=== PATIENT | male | born 1970 | race Caucasian/White ===

== ENCOUNTER 2021-03-01 09:27 | Day surgery (SDC) | payer OTHER ==
[2021-02-22 15:23] LABS: BASOPHILS # (AUTO) 0.1 X10'3 (0-0.2); BASOPHILS % (AUTO) 0.6 % (0-1); EOSINOPHILS # (AUTO) 0.1 X10'3 (0-0.9); LYMPHOCYTES % (AUTO) 33.3 % (21-51); MEAN CORPUSCULAR HEMOGLOBIN 31.2 PG (27.0-31.0); MEAN CORPUSCULAR HGB CONC 34.8 g/dL (33.0-36.5); MEAN CORPUSCULAR VOLUME 89.8 FL (78-98); MEAN PLATELET VOLUME 9.8 FL (7.4-10.4); MONOCYTES # (AUTO) 0.6 X10'3 (0-0.9); MONOCYTES % (AUTO) 7.1 % (2-12); NEUTROPHILS # (AUTO) 5.1 X10'3 (1.8-7.7); PRE OP HEMATOCRIT 43.7 % (42.0-52.0); PRE OP HEMOGLOBIN 15.2 g/dL (14.0-17.9); PRE OP PLATELET COUNT 231 X10'3 (140-440); RED BLOOD COUNT 4.87 X10'6 (4.70-6.10); RED CELL DISTRIBUTION WIDTH 13.6 % (11.5-14.5)
[2021-02-22 15:42] LABS: ALBUMIN 3.7 G/DL (3.4-5.0); ALBUMIN/GLOBULIN RATIO 0.9 (1.1-1.5); ALKALINE PHOSPHATASE 97 IU/L (46-116); BLOOD UREA NITROGEN 13 MG/DL (7-18); CALCIUM 9.2 MG/DL (8.5-10.1); CHLORIDE 104 MMOL/L (99-107); CREATININE 1.18 MG/DL (0.60-1.10); PRE OP ALT 44 U/L (30-65); PRE OP ANION GAP 12 (8-16); PRE OP AST 28 U/L (10-37); PRE OP BILIRUB, TOTAL 0.5 MG/DL (0.0-1.0); PRE OP GLUCOSE 151 MG/DL (70-104); PRE OP POTASSIUM 3.8 MMOL/L (3.4-5.1); PRE OP SODIUM 139 MMOL/L (135-145); TOTAL CARBON DIOXIDE 23.2 MMOL/L (24-32); TOTAL PROTEIN 7.8 G/DL (6.4-8.2); eGFR 66 ML/MIN
[~2021-03-01] VITALS: Ht 188 cm; Wt 169.5 kg
[2021-03-01] VITALS (14 sets, daily range): BP systolic 95–139; BP diastolic 50–90
[~2021-03-01 09:27] MED LIST: LISI20TA28 PO; METF-900 PO; VANCOMYCIN 1,500MG inj. 1,500 MG in normal saline 500ml IV soln 300 ML IV ONE; ceFAZolin inj. 3,000 MG in normal saline 100ml IV soln 100 ML IV ONE; cefazolin/dext.iso 2gm/50ml 50 ML IV ONE; famotidine 20mg tablet PO ONE; ringers solution, lacted 1,000 ML IV SCH
[2021-03-01] MEDS ORDERED: proCHLORperazine 10 MG/2 ml inj IV PRN (11:15)
[2021-03-01] MEDS ORDERED: ringers solution, lacted 1,000 ML IV SCH (11:15)
[2021-03-01] MEDS ORDERED: morphine 4 MG/ML inj SYRINge IV PRN (11:15)
[2021-03-01] MEDS ORDERED: ondansetron/PF 4mg/2ml inj IV PRN (11:15)
[2021-03-01] MEDS ORDERED: meperidine/PF 25mg/ml syringe IV PRN ×3 (11:15)
[2021-03-01] MEDS ORDERED: morphine 2 MG/ML inj. syringe IV PRN (11:15)
[2021-03-01] MEDS ORDERED: BUPIVAcaine/PF 2.5 mg/ml (0.25%) 30ml vial ONE (12:17)
[2021-03-01] MEDS ORDERED: triamcinolone acetonide 40mg/ml inj ONE (12:17)
[2021-03-01] MEDS ORDERED: sevoflurane 250ml liquid IH ONE (12:38)
[2021-03-01] MEDS ORDERED: rocuronium 10mg/ml inj IV ONE (12:38)
[2021-03-01] MEDS ORDERED: midazolam 1 mg/ML 2ml injection ONE (12:47)
[2021-03-01] MEDS ORDERED: fentaNYL/PF 50MCG/1 ML 2ML syringe ONE (12:47)
[2021-03-01] MEDS ORDERED: propofol inj 20 ML IV ONE (13:42)
[2021-03-01] MEDS ORDERED: neostigmine methylsulfate 1 MG/ML 10ml vial ONE (13:43)
[2021-03-01] MEDS ORDERED: glycopyrrolate 0.2mg/ml inj ONE (13:43)
--- NOTE | 2021-03-01 13:56 | NUR ---
Received from OR via [facility] IN STABLE CONDITION , accompanied by Anesthesiologist and TRAIN BRAKER report given by TRAIN BRAKER AND Anesthesiolgist. Addendum: 03/01/21 at 1425 by Emma Islas RN Amended: Links added.
[2021-03-01] MEDS ORDERED: acetaminophen 1,000mg/100ml IV 100 ML IV ONE (14:35)
--- NOTE | 2021-03-01 14:36 | NUR ---
SUSANNAH OVERIDE FOR NAUSEA AND VOMITING Addendum: 03/01/21 at 1437 by Emma Islas RN Amended: Links added.
[2021-03-01] MEDS ORDERED: oxyCODONE IR 5mg (immed. release) tablet PO ONE (15:05)
--- NOTE | 2021-03-01 16:06 | NUR ---
I HAVE REVIEWED D/C INSTRUCTIONS WITH PATIENT AND THEY HAVE VERBALIZED UNDERSTANDING OF INSTRUCTIONS. PATIENT D/C HOME WITH ALL BELONGINGS AND FAMILY GAVE TRANSPORT Addendum: 03/01/21 at 1613 by Emma Islas RN Amended: Links added.
== END 2021-03-01 16:06 | disposition home or self-care (01) ==
LOC: PAS 09:27
PROVIDERS: ATTEND Orthopaedic Surgery
DX: S83.272A Complex tear of lateral meniscus, current injury, left knee, initial encounter (principal); S83.242A Other tear of medial meniscus, current injury, left knee, initial encounter; M94.262 Chondromalacia, left knee; M17.12 Unilateral primary osteoarthritis, left knee; E11.59 Type 2 diabetes mellitus with other circulatory complications; F41.9 Anxiety disorder, unspecified; G89.4 Chronic pain syndrome; I10 Essential (primary) hypertension; G47.30 Sleep apnea, unspecified; G43.909 Migraine, unspecified, not intractable, without status migrainosus; K21.9 Gastro-esophageal reflux disease without esophagitis; E66.01 Morbid (severe) obesity due to excess calories; Z68.42 Body mass index [BMI] 45.0-49.9, adult; Z79.899 Other long term (current) drug therapy; Z79.84 Long term (current) use of oral hypoglycemic drugs; Z20.822 Contact with and (suspected) exposure to COVID-19; X50.1XXA Overexertion from prolonged static or awkward postures, initial encounter; Y93.89 Activity, other specified; Y92.89 Other specified places as the place of occurrence of the external cause; Y99.8 Other external cause status
CPT/HCPCS: 29873; 29879; 29880; 36415; 80053; 82948; 85025; 93005; J0131; J0690; J2175; J2250; J2405; J2704; J2710; J3010; J3301; J3370; J3490; J7040; U0003; U0005; Z7506; Z7508; Z7512; A4215; A4618; A6250; A6449; A7000; J7120